=== PATIENT | female | born 1950 | race Caucasian/White ===

== ENCOUNTER → 2019-08-29 | Outpatient (REF) | payer MEDICARE ==
[2019-08-30 11:35] LABS: BASO # 0.1 10^3/uL (0.0-0.2); BASO % 0.5 % (0.0-1.0); EOS # 0.3 10^3/uL (0.0-0.5); EOS % 2.8 % (0.0-3.0); HEMATOCRIT 39.8 % (36.0-47.0); HEMOGLOBIN 12.8 g/dl (12.0-15.5); LYMPH # 2.5 10^3/uL (1.5-5.0); LYMPH % 21.2 % (24.0-44.0); MEAN CORPUSCULAR HEMOGLOBIN 29.6 pg (27.0-33.0); MEAN CORPUSCULAR HGB CONC 32.2 g/dl (32.0-36.5); MEAN CORPUSCULAR VOLUME 91.9 fl (80.0-96.0); NEUTROPHILS % 67.2 % (36.0-66.0); PLATELET COUNT, AUTOMATED 394 10^3/uL (150-450); RED BLOOD COUNT 4.33 10^6/uL (4.00-5.40); WHITE BLOOD COUNT 11.9 10^3/uL (4.0-10.0)
[2019-08-30 12:00] LABS: ALBUMIN 3.8 GM/DL (3.2-5.2); ALT/SGPT 37 U/L (12-78); BILIRUBIN,TOTAL 0.3 MG/DL (0.2-1.0); BLOOD UREA NITROGEN 12 MG/DL (7-18); CALCIUM LEVEL 9.4 MG/DL (8.8-10.2); CARBON DIOXIDE LEVEL 27 MEQ/L (21-32); CHLORIDE LEVEL 106 MEQ/L (98-107); CREATININE FOR GFR 0.66 MG/DL (0.55-1.30); FREE T4 1.13 NG/DL (0.76-1.46); GLOMERULAR FILTRATION RATE > 60.0 (>39); GLUCOSE, FASTING 87 MG/DL (70-100); POTASSIUM SERUM 3.7 MEQ/L (3.5-5.1); SODIUM LEVEL 140 MEQ/L (136-145); TOTAL PROTEIN 7.7 GM/DL (6.4-8.2)
== END ==
LOC: M SFHCCLAY 14:54
PROVIDERS: ATTEND Nurse Practitioner Family
DX: R03.0 Elevated blood-pressure reading, without diagnosis of hypertension (principal); Z79.899 Other long term (current) drug therapy
CPT/HCPCS: 80053; 84439; 84443; 85025; 93005; G0463

== ENCOUNTER 2019-12-20 13:00 | Outpatient (RCR) | payer MEDICARE | END 2019-12-31 | LOC: M ST 13:00 | PROVIDERS: ATTEND Otolaryngology | DX: Z96.3 Presence of artificial larynx (principal); Z90.02 Acquired absence of larynx ==

== ENCOUNTER → 2020-01-25 | Outpatient (REF) | payer MEDICARE | LOC: M SFHCCLAY 11:53 | PROVIDERS: ATTEND Physician Assistant | DX: R30.0 Dysuria (principal) | CPT/HCPCS: 81002; 87088; 87186; G0463 ==

== ENCOUNTER 2020-04-20 09:20 | Outpatient (RCR) | payer MEDICARE | END 2020-04-29 | disposition home or self-care (01) | LOC: M ST 09:20 | PROVIDERS: ATTEND Otolaryngology | DX: Z96.3 Presence of artificial larynx (principal) ==

== ENCOUNTER → 2020-06-15 | Outpatient (CLI) | payer MEDICARE ==
--- NOTE | 2020-06-15 11:26 | REP ---
INDICATION: J44.9, COPD. COMPARISON: Multiple the latest 04/05/2017 a frontal view TECHNIQUE: PA and lateral FINDINGS: The cardiomediastinal silhouette is stable. The heart is not enlarged. Once again, there is bilateral central pulmonary arterial enlargement status quo. Basilar fibrotic changes are noted status quo. There is lung field hyperexpansion which appears stable. No acute patchy parenchymal opacities or pleural effusions have developed. There is no change in the osseous structures. IMPRESSION: Stable chronic changes as described above. There is evidence of pulmonary arterial hypertension. <Electronically signed by Ho Patterson > 06/15/20 1121
== END ==
LOC: M CLY 10:40
PROVIDERS: ATTEND Nurse Practitioner Adult Health
DX: J44.9 Chronic obstructive pulmonary disease, unspecified (principal)

== ENCOUNTER 2020-08-20 12:50 | Outpatient (RCR) | payer MEDICARE | END 2020-08-29 | LOC: M ST 12:50 | PROVIDERS: ATTEND Otolaryngology | DX: Z90.02 Acquired absence of larynx (principal); Z96.3 Presence of artificial larynx ==

== ENCOUNTER → 2020-11-29 | Outpatient (REF) | payer MEDICARE ==
[2020-11-29 15:53] LABS: BASO # 0.1 10^3/uL (0.0-0.2); BASO % 0.4 % (0.0-1.0); EOS # 0.1 10^3/uL (0.0-0.5); HEMATOCRIT 40.6 % (36.0-47.0); HEMOGLOBIN 13.1 g/dl (12.0-15.5); LYMPH % 21.7 % (24.0-44.0); MEAN CORPUSCULAR HEMOGLOBIN 28.9 pg (27.0-33.0); MEAN CORPUSCULAR HGB CONC 32.3 g/dl (32.0-36.5); MEAN CORPUSCULAR VOLUME 89.4 fl (80.0-96.0); MONO # 1.2 10^3/uL (0.0-0.8); MONO % 8.7 % (2.0-8.0); NEUTROPHILS # 9.4 10^3/uL (1.5-8.5); NEUTROPHILS % 67.8 % (36.0-66.0); PLATELET COUNT, AUTOMATED 425 10^3/uL (150-450); RED BLOOD COUNT 4.54 10^6/uL (4.00-5.40); WHITE BLOOD COUNT 13.9 10^3/uL (4.0-10.0)
[2020-11-29 16:24] LABS: ALBUMIN 3.6 GM/DL (3.2-5.2); ALT/SGPT 26 U/L (12-78); BILIRUBIN,TOTAL 0.6 MG/DL (0.2-1.0); BLOOD UREA NITROGEN 12 MG/DL (7-18); CALCIUM LEVEL 9.1 MG/DL (8.8-10.2); CARBON DIOXIDE LEVEL 26 MEQ/L (21-32); CHLORIDE LEVEL 104 MEQ/L (98-107); CREATININE FOR GFR 0.74 MG/DL (0.55-1.30); GLOMERULAR FILTRATION RATE > 60.0 (>39); GLUCOSE, FASTING 68 MG/DL (70-100); POTASSIUM SERUM 3.8 MEQ/L (3.5-5.1); SODIUM LEVEL 137 MEQ/L (136-145); TOTAL PROTEIN 8.2 GM/DL (6.4-8.2)
== END ==
LOC: M SFHCCAPE 14:10
PROVIDERS: ATTEND Physician Assistant
DX: R07.81 Pleurodynia (principal); R05 Cough
CPT/HCPCS: 36415; 80053; 85025; 85379; 87426; 93005; G0463; U0003

== ENCOUNTER → 2020-12-03 | Outpatient (CLI) | payer MEDICARE ==
--- NOTE | 2020-12-03 11:55 | REP ---
INDICATION: PNEUMONIA COMPARISON: 06/15/2020 TECHNIQUE: PA and lateral. FINDINGS: The mediastinum and cardiac silhouette are normal. The lung diane demonstrate chronic appearing changes without acute consolidation, effusion, or pneumothorax. The skeletal structures are intact and normal. IMPRESSION: Chronic appearing changes. No acute consolidation or effusion. <Electronically signed by Eric Mojica > 12/03/20 [id number]
== END ==
LOC: M CLY 11:28
PROVIDERS: ATTEND Nurse Practitioner Family
DX: J18.9 Pneumonia, unspecified organism (principal); J44.9 Chronic obstructive pulmonary disease, unspecified; Z93.0 Tracheostomy status
CPT/HCPCS: 71046; 80053; 85025; G0463

== ENCOUNTER → 2020-12-03 | Outpatient (REF) | payer MEDICARE ==
[2020-12-03 16:04] LABS: BASO % 0.2 % (0.0-1.0); EOS % 0.1 % (0.0-3.0); HEMATOCRIT 40.4 % (36.0-47.0); LYMPH # 2.2 10^3/uL (1.5-5.0); MEAN CORPUSCULAR HGB CONC 32.2 g/dl (32.0-36.5); MONO # 1.2 10^3/uL (0.0-0.8); MONO % 6.7 % (2.0-8.0); NEUTROPHILS # 14.3 10^3/uL (1.5-8.5); NEUTROPHILS % 79.8 % (36.0-66.0); PLATELET COUNT, AUTOMATED 492 10^3/uL (150-450); RED BLOOD COUNT 4.49 10^6/uL (4.00-5.40); WHITE BLOOD COUNT 17.9 10^3/uL (4.0-10.0)
[2020-12-03 16:33] LABS: ALBUMIN 3.3 GM/DL (3.2-5.2); ALT/SGPT 32 U/L (12-78); BILIRUBIN,TOTAL 0.3 MG/DL (0.2-1.0); BLOOD UREA NITROGEN 22 MG/DL (7-18); CALCIUM LEVEL 9.1 MG/DL (8.8-10.2); CARBON DIOXIDE LEVEL 27 MEQ/L (21-32); CHLORIDE LEVEL 108 MEQ/L (98-107); CREATININE FOR GFR 0.79 MG/DL (0.55-1.30); GLOMERULAR FILTRATION RATE > 60.0 (>39); GLUCOSE, FASTING 92 MG/DL (70-100); POTASSIUM SERUM 3.6 MEQ/L (3.5-5.1); SODIUM LEVEL 142 MEQ/L (136-145); TOTAL PROTEIN 7.5 GM/DL (6.4-8.2)
== END ==
LOC: M SFHCCLAY 11:08
PROVIDERS: ATTEND Nurse Practitioner Family
DX: J18.9 Pneumonia, unspecified organism (principal); J44.9 Chronic obstructive pulmonary disease, unspecified; Z93.0 Tracheostomy status

== ENCOUNTER → 2020-12-06 | Outpatient (REF) | payer MEDICARE ==
[2020-12-06 16:28] LABS: BASO # 0.1 10^3/uL (0.0-0.2); BASO % 0.4 % (0.0-1.0); EOS # 0.4 10^3/uL (0.0-0.5); EOS % 3.3 % (0.0-3.0); HEMATOCRIT 40.8 % (36.0-47.0); HEMOGLOBIN 13.2 g/dl (12.0-15.5); LYMPH # 3.5 10^3/uL (1.5-5.0); LYMPH % 26.4 % (24.0-44.0); MEAN CORPUSCULAR HEMOGLOBIN 28.8 pg (27.0-33.0); MEAN CORPUSCULAR HGB CONC 32.4 g/dl (32.0-36.5); MEAN CORPUSCULAR VOLUME 89.1 fl (80.0-96.0); MONO # 0.8 10^3/uL (0.0-0.8); MONO % 6.2 % (2.0-8.0); NEUTROPHILS # 8.1 10^3/uL (1.5-8.5); PLATELET COUNT, AUTOMATED 476 10^3/uL (150-450); RED BLOOD COUNT 4.58 10^6/uL (4.00-5.40); WHITE BLOOD COUNT 13.1 10^3/uL (4.0-10.0)
[2020-12-06 17:57] LABS: ALBUMIN 3.1 GM/DL (3.2-5.2); ALT/SGPT 41 U/L (12-78); BILIRUBIN,TOTAL 0.4 MG/DL (0.2-1.0); BLOOD UREA NITROGEN 16 MG/DL (7-18); CALCIUM LEVEL 8.9 MG/DL (8.8-10.2); CARBON DIOXIDE LEVEL 27 MEQ/L (21-32); CHLORIDE LEVEL 105 MEQ/L (98-107); CREATININE FOR GFR 0.77 MG/DL (0.55-1.30); GLOMERULAR FILTRATION RATE > 60.0 (>39); GLUCOSE, FASTING 99 MG/DL (70-100); POTASSIUM SERUM 3.6 MEQ/L (3.5-5.1); SODIUM LEVEL 140 MEQ/L (136-145); TOTAL PROTEIN 6.6 GM/DL (6.4-8.2)
== END ==
LOC: M SFHCCAPE 09:39
PROVIDERS: ATTEND Nurse Practitioner Family
DX: R07.81 Pleurodynia (principal); J18.9 Pneumonia, unspecified organism

== ENCOUNTER 2020-12-24 11:00 | Outpatient (RCR) | payer MEDICARE | END 2020-12-30 | LOC: M ST 11:00 | PROVIDERS: ATTEND Otolaryngology | DX: Z96.3 Presence of artificial larynx (principal) ==

== ENCOUNTER → 2021-01-30 | Outpatient (CLI) | payer MEDICARE ==
--- NOTE | 2021-01-30 10:07 | REP ---
INDICATION: R91.8 ABNORMAL FINDING OF LUNG FIELD. COMPARISON: Multiple the latest 12/03/2020 TECHNIQUE: PA and lateral FINDINGS: Since the last examination minimal right CP angle blunting has developed. Lung diane are otherwise stable. The cardiomediastinal silhouette is stable. The heart is not enlarged. There is no change the osseous structures. IMPRESSION: New right CP angle blunting etiology uncertain. Follow-up is recommended. <Electronically signed by Ho Patterson > 01/30/21 1001
--- NOTE | 2021-01-30 11:19 | REP ---
INDICATION: M25.512 ACUTE PAIN OF LEFT SHOULDER. COMPARISON: None. TECHNIQUE: Three views of the left shoulder were performed. FINDINGS: The acromioclavicular and glenohumeral relationships are within normal limits. There is no acute fracture or destructive osseous lesion. IMPRESSION: Within normal limits <Electronically signed by Ho Patterson > 01/30/21 1115
== END ==
LOC: M CLY 09:22
PROVIDERS: ATTEND Nurse Practitioner Adult Health
DX: R91.8 Other nonspecific abnormal finding of lung field (principal); M25.512 Pain in left shoulder
CPT/HCPCS: 71046; 73030; G0463

== ENCOUNTER → 2021-03-07 | Outpatient (CLI) | payer MEDICARE | LOC: M PLAIMG 09:03 | PROVIDERS: ATTEND Orthopaedic Surgery | DX: M19.012 Primary osteoarthritis, left shoulder (principal); M67.814 Other specified disorders of tendon, left shoulder ==

== ENCOUNTER 2021-05-15 09:09 | Outpatient (RCR) | payer MEDICARE | END 2021-05-30 | LOC: M ST 09:09 | PROVIDERS: ATTEND Otolaryngology | DX: Z96.3 Presence of artificial larynx (principal) ==

== ENCOUNTER 2021-07-23 09:00 | Outpatient (RCR) | payer MEDICARE | END 2021-07-30 | LOC: M ST 09:00 | PROVIDERS: ATTEND Otolaryngology | DX: Z96.3 Presence of artificial larynx (principal) ==

== ENCOUNTER → 2021-10-22 | Outpatient (CLI) | payer MEDICARE | LOC: M SOG 08:06 | PROVIDERS: ATTEND Physician Assistant | DX: G56.03 Carpal tunnel syndrome, bilateral upper limbs (principal) ==

== ENCOUNTER → 2021-10-28 | Outpatient (CLI) | payer MEDICARE ==
[~2021-10-28] MED LIST: ALBU2.5V10 INH; ATOR40TA75 PO; ECOT81TA5 PO; LEXA1TAB2 PO; LISI5TAB11 PO; TREL1AER IN; VENTAER INH
== END ==
LOC: M LABSMTC 11:10
PROVIDERS: ATTEND Anesthesiology
DX: Z01.818 Encounter for other preprocedural examination (principal); Z11.52 Encounter for screening for COVID-19

== ENCOUNTER 2021-10-30 08:58 | Day surgery (SDC) | payer MEDICARE ==
[~2021-10-30] VITALS: Ht 160 cm; Wt 73.5 kg
[~2021-10-30 08:58] MED LIST changes: +LIDOCAINE W/EPINEPHRINE 1% 20ML VIAL XX ONE; +SODIUM BICARBONATE 8.4% INJ 50MEQ 50 ML VIAL XX ONE
[2021-10-30] MEDS ORDERED: BACITRACIN OINTMENT 30GM TUBE As Ordered ONE (12:37)
[2021-10-30 13:01] VITALS: BP 136/64
== END 2021-10-30 13:30 | disposition home or self-care (01) ==
LOC: M SDC 08:58
PROVIDERS: ATTEND Orthopaedic Surgery Hand Surgery
DX: G56.02 Carpal tunnel syndrome, left upper limb (principal); E78.00 Pure hypercholesterolemia, unspecified; J44.9 Chronic obstructive pulmonary disease, unspecified; Z99.81 Dependence on supplemental oxygen; Z85.21 Personal history of malignant neoplasm of larynx; F41.9 Anxiety disorder, unspecified; F32.A Depression, unspecified; Z87.891 Personal history of nicotine dependence; Z79.899 Other long term (current) drug therapy; Z79.82 Long term (current) use of aspirin; Z79.51 Long term (current) use of inhaled steroids

== ENCOUNTER 2021-11-25 10:00 | Outpatient (RCR) | payer MEDICARE ==
[~2021-11-25 10:00] MED LIST changes: -LIDOCAINE W/EPINEPHRINE 1% 20ML VIAL XX ONE; -SODIUM BICARBONATE 8.4% INJ 50MEQ 50 ML VIAL XX ONE
== END 2021-11-29 ==
LOC: M ST 10:00
PROVIDERS: ATTEND Otolaryngology
DX: Z90.02 Acquired absence of larynx (principal); Z96.3 Presence of artificial larynx

== ENCOUNTER → 2022-01-22 | Outpatient (REF) | payer MEDICARE ==
[2022-01-22 17:09] LABS: BASO % 0.5 % (0.0-1.0); EOS # 0.2 10^3/uL (0.0-0.5); EOS % 1.8 % (0.0-3.0); HEMATOCRIT 41.3 % (36.0-47.0); HEMOGLOBIN 13.4 g/dl (12.0-15.5); LYMPH # 2.3 10^3/uL (1.5-5.0); LYMPH % 27.2 % (24.0-44.0); MEAN CORPUSCULAR HEMOGLOBIN 29.6 pg (27.0-33.0); MEAN CORPUSCULAR HGB CONC 32.4 g/dl (32.0-36.5); MEAN CORPUSCULAR VOLUME 91.2 fl (80.0-96.0); MONO # 0.5 10^3/uL (0.0-0.8); MONO % 6.3 % (2.0-8.0); NEUTROPHILS # 5.5 10^3/uL (1.5-8.5); PLATELET COUNT, AUTOMATED 406 10^3/uL (150-450); RED BLOOD COUNT 4.53 10^6/uL (4.00-5.40); WHITE BLOOD COUNT 8.5 10^3/uL (4.0-10.0)
[2022-01-22 18:04] LABS: ALBUMIN 4.1 G/DL (3.2-5.2); ALT/SGPT 33 U/L (7.0-40); BILIRUBIN,TOTAL 0.7 MG/DL (0.3-1.2); BLOOD UREA NITROGEN 10 MG/DL (9-23); CALCIUM LEVEL 9.3 MG/DL (8.3-10.6); CARBON DIOXIDE LEVEL 24 MMOL/L (20-31); CHLORIDE LEVEL 105 MMOL/L (98-107); CHOLESTEROL LEVEL 162 MG/DL (<200); CHOLESTEROL RISK RATIO 2.62 (<5); CREATININE FOR GFR 0.69 MG/DL (0.55-1.30); FREE T4 1.04 NG/DL (0.89-1.76); GLOMERULAR FILTRATION RATE > 60.0 (>39); GLUCOSE, FASTING 101 MG/DL (74-106); HDL CHOLESTEROL 61.6 MG/DL (>40); LDL CHOLESTEROL 79.2 MG/DL (<100); NON-HDL-C 100 MG/DL; POTASSIUM SERUM 3.9 MMOL/L (3.5-5.1); SODIUM LEVEL 141 MMOL/L (136-145); THYROID STIMULATING HORMONE 1.229 uIU/ML (0.55-4.78); TOTAL PROTEIN 7.5 G/DL (5.7-8.2); TRIGLYCERIDES LEVEL 106 MG/DL (<150)
[2022-01-22 19:08] LABS: HEMOGLOBIN A1c 5.8 % (4.0-6.0)
== END ==
LOC: M SFHCCLAY 11:23
PROVIDERS: ATTEND Nurse Practitioner Family
DX: E78.2 Mixed hyperlipidemia (principal); F41.8 Other specified anxiety disorders; J44.9 Chronic obstructive pulmonary disease, unspecified; R03.0 Elevated blood-pressure reading, without diagnosis of hypertension; Z93.0 Tracheostomy status; Z13.1 Encounter for screening for diabetes mellitus; Z79.899 Other long term (current) drug therapy

== ENCOUNTER → 2022-02-14 | Outpatient (CLI) | payer MEDICARE | LOC: M PLAIMG 08:14 | PROVIDERS: ATTEND Nurse Practitioner Family | DX: R41.3 Other amnesia (principal) ==

== ENCOUNTER 2022-02-21 09:30 | Outpatient (RCR) | payer MEDICARE | END 2022-03-01 | LOC: M ST 09:30 | PROVIDERS: ATTEND Otolaryngology | DX: Z90.02 Acquired absence of larynx (principal); Z96.3 Presence of artificial larynx ==

== ENCOUNTER → 2022-04-28 | Outpatient (REF) | payer MEDICARE ==
[2022-04-28 18:14] LABS: FOLATE 4.1 NG/ML (>5.4)
== END ==
LOC: M LABDRAWC 17:03
PROVIDERS: ATTEND Psychiatry & Neurology Neurology
DX: R41.3 Other amnesia (principal); E51.9 Thiamine deficiency, unspecified; E53.8 Deficiency of other specified B group vitamins; E53.1 Pyridoxine deficiency

== ENCOUNTER → 2022-05-15 | Outpatient (CLI) | payer MEDICARE | LOC: M PLAIMG 11:12 | PROVIDERS: ATTEND Nurse Practitioner Adult Health | DX: R91.8 Other nonspecific abnormal finding of lung field (principal); J44.9 Chronic obstructive pulmonary disease, unspecified; R09.02 Hypoxemia ==

== ENCOUNTER → 2022-05-26 | Outpatient (CLI) | payer MEDICARE | LOC: M PLAIMG 12:50 | PROVIDERS: ATTEND Nurse Practitioner Adult Health | DX: R91.8 Other nonspecific abnormal finding of lung field (principal) ==

== ENCOUNTER 2022-06-25 14:01 | Outpatient (RCR) | payer MEDICARE | END 2022-06-29 | LOC: M ST 14:01 | PROVIDERS: ATTEND Otolaryngology | DX: Z96.3 Presence of artificial larynx (principal) ==

== ENCOUNTER → 2022-07-02 | Outpatient (REF) | payer MEDICARE ==
[2022-07-02 18:26] LABS: HEMOGLOBIN A1c 6.1 % (4.0-6.0)
[2022-07-02 18:40] LABS: FREE T4 0.99 NG/DL (0.89-1.76)
[2022-07-02 18:42] LABS: ALBUMIN 3.7 G/DL (3.2-5.2); ALKALINE PHOSPHATASE 91 U/L (46-116); ALT/SGPT < 9 U/L (7.0-40); AST/SGOT 35 U/L (<34); BILIRUBIN,TOTAL 0.5 MG/DL (0.3-1.2); BLOOD UREA NITROGEN 11 MG/DL (9-23); CALCIUM LEVEL 9.4 MG/DL (8.3-10.6); CARBON DIOXIDE LEVEL 26 MMOL/L (20-31); CHLORIDE LEVEL 107 MMOL/L (98-107); CREATININE FOR GFR 0.64 MG/DL (0.55-1.30); GLOMERULAR FILTRATION RATE > 60.0 (>39); GLUCOSE, FASTING 79 MG/DL (74-106); POTASSIUM SERUM 4.7 MMOL/L (3.5-5.1); SODIUM LEVEL 141 MMOL/L (136-145); TOTAL PROTEIN 7.4 G/DL (5.7-8.2)
[2022-07-02 18:44] LABS: THYROID STIMULATING HORMONE 2.178 uIU/ML (0.55-4.78)
== END ==
LOC: M SFHCCLAY 11:37
PROVIDERS: ATTEND Nurse Practitioner Family
DX: F41.8 Other specified anxiety disorders (principal); E78.2 Mixed hyperlipidemia; J44.9 Chronic obstructive pulmonary disease, unspecified; Z93.0 Tracheostomy status; Z13.1 Encounter for screening for diabetes mellitus; Z79.899 Other long term (current) drug therapy

== ENCOUNTER → 2022-10-06 | Outpatient (CLI) | payer MEDICARE | LOC: M PLAIMG 11:20 | PROVIDERS: ATTEND Nurse Practitioner Adult Health | DX: R91.8 Other nonspecific abnormal finding of lung field (principal) ==

== ENCOUNTER 2022-10-27 01:00 | Outpatient (RCR) | payer MEDICARE | END 2022-10-30 | LOC: M ST 01:00 | PROVIDERS: ATTEND Otolaryngology | DX: Z96.3 Presence of artificial larynx (principal) ==

== ENCOUNTER → 2023-01-14 | Outpatient (REF) | payer MEDICARE ==
[2023-01-14 18:48] LABS: BASO % 0.4 % (0.0-1.0); EOS # 0.2 10^3/uL (0.0-0.5); HEMATOCRIT 42.1 % (36.0-47.0); HEMOGLOBIN 13.5 g/dl (12.0-15.5); LYMPH # 2.4 10^3/uL (1.5-5.0); LYMPH % 30.3 % (24.0-44.0); MEAN CORPUSCULAR HEMOGLOBIN 29.9 pg (27.0-33.0); MEAN CORPUSCULAR HGB CONC 32.1 g/dl (32.0-36.5); MEAN CORPUSCULAR VOLUME 93.3 fl (80.0-96.0); MONO # 0.6 10^3/uL (0.0-0.8); MONO % 7.9 % (2.0-8.0); NEUTROPHILS # 4.7 10^3/uL (1.5-8.5); NEUTROPHILS % 58.1 % (36.0-66.0); PLATELET COUNT, AUTOMATED 404 10^3/uL (150-450); RED BLOOD COUNT 4.51 10^6/uL (4.00-5.40)
[2023-01-14 19:03] LABS: ALBUMIN 3.6 G/DL (3.2-5.2); ALKALINE PHOSPHATASE 94 U/L (46-116); ALT/SGPT 29 U/L (7.0-40); AST/SGOT 37 U/L (<34); BILIRUBIN,TOTAL 0.5 MG/DL (0.3-1.2); BLOOD UREA NITROGEN 11 MG/DL (9-23); CALCIUM LEVEL 9.5 MG/DL (8.3-10.6); CARBON DIOXIDE LEVEL 30 MMOL/L (20-31); CHLORIDE LEVEL 107 MMOL/L (98-107); CREATININE FOR GFR 0.77 MG/DL (0.55-1.30); GLOMERULAR FILTRATION RATE > 60.0 (>39); GLUCOSE, FASTING 83 MG/DL (74-106); POTASSIUM SERUM 4.4 MMOL/L (3.5-5.1); SODIUM LEVEL 143 MMOL/L (136-145); TOTAL PROTEIN 7.7 G/DL (5.7-8.2)
[2023-01-14 19:04] LABS: FOLATE > 24.0 NG/ML (>5.4); VITAMIN B12 LEVEL 1349 PG/ML (211-911)
== END ==
LOC: M LABDRAWC 17:16
PROVIDERS: ATTEND Psychiatry & Neurology Neurology
DX: R41.3 Other amnesia (principal); E53.8 Deficiency of other specified B group vitamins

== ENCOUNTER 2023-02-20 10:00 | Outpatient (RCR) | payer MEDICARE | END 2023-03-01 | LOC: M ST 10:00 | PROVIDERS: ATTEND Otolaryngology | DX: Z90.02 Acquired absence of larynx (principal); Z96.3 Presence of artificial larynx ==

== ENCOUNTER → 2023-05-11 | Outpatient (CLI) | payer MEDICARE | LOC: M PLAIMG 10:32 | PROVIDERS: ATTEND Internal Medicine Pulmonary Disease | DX: J44.9 Chronic obstructive pulmonary disease, unspecified (principal); R91.1 Solitary pulmonary nodule ==

== ENCOUNTER → 2023-05-13 | Outpatient (REF) | payer MEDICARE | LOC: M LAB REF 16:51 | PROVIDERS: ATTEND Nurse Practitioner Adult Health | DX: J44.9 Chronic obstructive pulmonary disease, unspecified (principal) ==

== ENCOUNTER 2023-06-23 10:31 | Outpatient (RCR) | payer MEDICARE | END 2023-06-30 | LOC: M ST 10:31 | PROVIDERS: ATTEND Otolaryngology | DX: Z90.02 Acquired absence of larynx (principal); Z96.3 Presence of artificial larynx ==

== ENCOUNTER 2023-09-06 10:52 | Emergency (ER) | payer MEDICARE ==
[~2023-09-06] VITALS: Ht 160 cm; Wt 72.3 kg
[2023-09-06] MEDS ORDERED: DONE5TAB86 PO (11:09)
[2023-09-06 12:48] VITALS: BP 140/74; TEMP 98.2; O2SAT 86
[2023-09-06] MEDS: LIDOCAINE 1% MDV 20ML VIAL SC ONE (12:57)
== END 2023-09-06 13:44 | disposition home or self-care (01) ==
LOC: M ED 10:52
DX: S01.01XA Laceration without foreign body of scalp, initial encounter (principal); W01.118A Fall on same level from slipping, tripping and stumbling with subsequent striking against other sharp object, initial encounter; Y92.009 Unspecified place in unspecified non-institutional (private) residence as the place of occurrence of the external cause; Y93.89 Activity, other specified; Y99.9 Unspecified external cause status; E78.5 Hyperlipidemia, unspecified; I10 Essential (primary) hypertension; J44.9 Chronic obstructive pulmonary disease, unspecified; F17.200 Nicotine dependence, unspecified, uncomplicated; Z79.82 Long term (current) use of aspirin; Z79.899 Other long term (current) drug therapy

== ENCOUNTER 2023-09-22 10:00 | Outpatient (RCR) | payer MEDICARE ==
[~2023-09-22 10:00] MED LIST changes: +DONE5TAB86 PO
== END 2023-09-30 ==
LOC: M ST 10:00
PROVIDERS: ATTEND Otolaryngology
DX: Z96.3 Presence of artificial larynx (principal)

== ENCOUNTER 2023-10-19 11:54 | Emergency (ER) | payer MEDICARE ==
[~2023-10-19] VITALS: Ht 160 cm; Wt 72.8 kg
[2023-10-19 12:48] LABS: BASO % 0.4 % (0.0-1.0); EOS # 0.2 10^3/uL (0.0-0.5); EOS % 2.2 % (0.0-3.0); HEMATOCRIT 42.2 % (36.0-47.0); HEMOGLOBIN 13.6 g/dl (12.0-15.5); LYMPH # 1.8 10^3/uL (1.5-5.0); LYMPH % 24.1 % (24.0-44.0); MEAN CORPUSCULAR HGB CONC 32.2 g/dl (32.0-36.5); MONO # 0.5 10^3/uL (0.0-0.8); MONO % 7.2 % (2.0-8.0); NEUTROPHILS # 4.8 10^3/uL (1.5-8.5); NEUTROPHILS % 65.5 % (36.0-66.0); PLATELET COUNT, AUTOMATED 357 10^3/uL (150-450); RED BLOOD COUNT 4.54 10^6/uL (4.00-5.40); WHITE BLOOD COUNT 7.3 10^3/uL (4.0-10.0)
[2023-10-19 13:06] LABS: INR 0.95; PARTIAL THROMBOPLASTIN TIME 24.6 SECONDS (24.8-34.2); PROTHROMBIN TIME 12.4 SECONDS (12.5-14.5)
[2023-10-19 13:24] LABS: ALBUMIN 3.6 G/DL (3.2-5.2); ALKALINE PHOSPHATASE 82 U/L (46-116); ALT/SGPT 17 U/L (7.0-40); AST/SGOT 15 U/L (<34); BILIRUBIN,DIRECT < 0.1 MG/DL (<0.4); BILIRUBIN,TOTAL 0.3 MG/DL (0.3-1.2); BLOOD UREA NITROGEN 9 MG/DL (9-23); CALCIUM LEVEL 9.4 MG/DL (8.3-10.6); CARBON DIOXIDE LEVEL 31 MMOL/L (20-31); CHLORIDE LEVEL 107 MMOL/L (98-107); CK-MB VALUE MASS 1.2 NG/ML (<3.6); CPK CREATINE PHOSPHOKINASE 88 U/L (34-145); CREATININE FOR GFR 0.76 MG/DL (0.55-1.30); GLOMERULAR FILTRATION RATE > 60.0 (>39); GLUCOSE, FASTING 75 MG/DL (74-106); MB/CK RELATIVE INDEX 1.36 (< OR =4); POTASSIUM SERUM 3.9 MMOL/L (3.5-5.1); SODIUM LEVEL 140 MMOL/L (136-145); TOTAL PROTEIN 7.6 G/DL (5.7-8.2)
[2023-10-19 13:25] LABS: THYROID STIMULATING HORMONE 1.394 uIU/ML (0.55-4.78)
[2023-10-19 13:26] LABS: FREE T4 1.09 NG/DL (0.89-1.76)
[2023-10-19] MEDS ORDERED: ISOVUE-370 76% 100ML VIAL As Ordered ONE (13:32)
[2023-10-19 14:25] LABS: CK-MB VALUE MASS < 1.0 NG/ML (<3.6)
[2023-10-19 14:27] LABS: CPK CREATINE PHOSPHOKINASE 79 U/L (34-145); MB/CK RELATIVE INDEX 1.26 (< OR =4)
[2023-10-19] MEDS: NS 1,000 ML IV SCH (15:27)
[2023-10-19] MEDS: MECLIZINE 25 MG TABLET PO ONE (15:28)
[2023-10-19] MEDS ORDERED: MECL-209 PO (18:06)
[2023-10-19 18:54] VITALS: BP 152/74; TEMP 98.1; O2SAT 95
== END 2023-10-19 19:15 | disposition home or self-care (01) ==
LOC: M ED 11:54
DX: R42 Dizziness and giddiness (principal); F41.9 Anxiety disorder, unspecified; F32.A Depression, unspecified; J44.9 Chronic obstructive pulmonary disease, unspecified; Z85.21 Personal history of malignant neoplasm of larynx; Z87.891 Personal history of nicotine dependence; Z79.82 Long term (current) use of aspirin; Z79.899 Other long term (current) drug therapy
CPT/HCPCS: 70450; 70496; 70498; 70544; 70551; 71045; 80048; 80076; 82550; 82553; 84439; 84443; 84484; 85025; 85610; 85730; 93005; 93041; 94760; 99285; Q9967

== ENCOUNTER 2023-10-24 10:16 | Emergency (ER) | payer MEDICARE ==
[~2023-10-24 10:16] MED LIST changes: +MECL-209 PO
[2023-10-24 10:40] VITALS: O2SAT 96
[2023-10-24] MEDS: IPRATROPIUM 0.5MG/ALBUTEROL 2.5MG INH SOL UD 3ML (DUONEB) NEB ONE ×2 (10:48→11:06)
[2023-10-24 10:53] LABS: ABG BASE EXCESS 0.9 (-2.0-2.0); ABG HCO3 25.1 MMOL/L (22.0-26.0); ABG PARTIAL PRESSURE CO2 38.5 mmHg (35.0-45.0); ABG PARTIAL PRESSURE O2 81.3 mmHg (75.0-100.0); ABG STANDARD HCO3 25.3 MMOL/L. (22.0-26.0); ABG TOTAL CO2 26.3 MMOL/L (23.0-31.0); ABG pH (ARTERIAL) 7.432 UNITS (7.350-7.450)
[2023-10-24] MEDS: IPRATROPIUM 0.5MG/ALBUTEROL 2.5MG INH SOL UD 3ML (DUONEB) NEB STA (10:55)
[2023-10-24] MEDS: methylPREDNISolone 125MG 2ML VIAL IV ONE (11:37)
[2023-10-24 12:07] LABS: BASO % 0.3 % (0.0-1.0); EOS % 0.3 % (0.0-3.0); HEMATOCRIT 43.7 % (36.0-47.0); HEMOGLOBIN 14.2 g/dl (12.0-15.5); LYMPH # 1.2 10^3/uL (1.5-5.0); LYMPH % 16.1 % (24.0-44.0); MEAN CORPUSCULAR HGB CONC 32.5 g/dl (32.0-36.5); MEAN CORPUSCULAR VOLUME 92.4 fl (80.0-96.0); MONO # 0.8 10^3/uL (0.0-0.8); MONO % 11.1 % (2.0-8.0); NEUTROPHILS # 5.2 10^3/uL (1.5-8.5); NEUTROPHILS % 71.9 % (36.0-66.0); PLATELET COUNT, AUTOMATED 300 10^3/uL (150-450); RED BLOOD COUNT 4.73 10^6/uL (4.00-5.40); WHITE BLOOD COUNT 7.2 10^3/uL (4.0-10.0)
[2023-10-24] MEDS: NS 1,000 ML IV ONE (12:10)
[2023-10-24 12:19] LABS: INR 1.07; PROTHROMBIN TIME 13.6 SECONDS (12.5-14.5)
[2023-10-24] MEDS: cefTRIAXone SOD 1 GM in D5W MINI-BAG PLUS 50 ML IV ONE (12:28)
[2023-10-24 12:41] LABS: CK-MB VALUE MASS < 1.0 NG/ML (<3.6)
[2023-10-24 12:43] LABS: ALBUMIN 4.1 G/DL (3.2-5.2); ALKALINE PHOSPHATASE 86 U/L (46-116); ALT/SGPT 17 U/L (7.0-40); AST/SGOT 24 U/L (<34); BILIRUBIN,DIRECT 0.1 MG/DL (<0.4); BILIRUBIN,TOTAL 0.4 MG/DL (0.3-1.2); BLOOD UREA NITROGEN 10 MG/DL (9-23); CARBON DIOXIDE LEVEL 28 MMOL/L (20-31); CHLORIDE LEVEL 104 MMOL/L (98-107); CREATININE FOR GFR 0.77 MG/DL (0.55-1.30); GLOMERULAR FILTRATION RATE > 60.0 (>39); GLUCOSE, FASTING 133 MG/DL (74-106); POTASSIUM SERUM 3.5 MMOL/L (3.5-5.1); SODIUM LEVEL 138 MMOL/L (136-145); TOTAL PROTEIN 8.6 G/DL (5.7-8.2)
[2023-10-24 12:44] LABS: THYROID STIMULATING HORMONE 1.935 uIU/ML (0.55-4.78)
[2023-10-24 12:45] LABS: THYROXINE (T4) 8.4 UG/DL (4.5-10.9)
[2023-10-24 12:50] LABS: CPK CREATINE PHOSPHOKINASE 113 U/L (34-145); MB/CK RELATIVE INDEX 0.88 (< OR =4)
[2023-10-24] MEDS: AZITHROMYCIN INJ 500 MG, VIAL MATE ADAPTER 1 EACH in NS 250 ML IV ONE (13:30)
[2023-10-24] MEDS ORDERED: PRED20TA PO (13:32)
[2023-10-24] MEDS ORDERED: NIRM1TAB14 PO (13:32)
[2023-10-24] MEDS ORDERED: DOXY-323 PO (13:32)
[2023-10-24 14:31] VITALS: BP 142/70; TEMP 98.1; O2SAT 97
== END 2023-10-24 14:31 | disposition home or self-care (01) ==
LOC: M ED 10:16
DX: U07.1 COVID-19 (principal); J18.9 Pneumonia, unspecified organism; J44.1 Chronic obstructive pulmonary disease with (acute) exacerbation; F17.200 Nicotine dependence, unspecified, uncomplicated; Z79.82 Long term (current) use of aspirin; Z79.899 Other long term (current) drug therapy
CPT/HCPCS: 36600; 71045; 80048; 80076; 82550; 82553; 82803; 83605; 83880; 84436; 84443; 84484; 85025; 85610; 87040; 87070; 87077; 87185; 87186; 87205; 87486; 87581; 87633; 87798; 93005; 93041; 94640; 94760; 96365; 96366; 96368; 96375; 99285; J0456; J0696; J2919

== ENCOUNTER → 2023-11-26 | Outpatient (CLI) | payer MEDICARE ==
[~2023-11-26] MED LIST changes: +DOXY-323 PO; +NIRM1TAB14 PO; +PRED20TA PO
== END ==
LOC: M PLAIMG 10:57
PROVIDERS: ATTEND Nurse Practitioner Adult Health
DX: R91.8 Other nonspecific abnormal finding of lung field (principal)

== ENCOUNTER 2023-12-25 11:05 | Outpatient (RCR) | payer MEDICARE ==
[~2023-12-25 11:05] MED LIST changes: -DOXY-323 PO; +DOXY-441 PO
== END 2023-12-31 ==
LOC: M ST 11:05
PROVIDERS: ATTEND Otolaryngology
DX: Z96.3 Presence of artificial larynx (principal)

== ENCOUNTER 2024-03-03 08:00 | Inpatient (IN) | payer MEDICARE ==
[2024-03-03] MEDS: ACETAMINOPHEN 325 MG TAB PO ONE (08:35)
[2024-03-03] MEDS: methylPREDNISolone 125MG 2ML VIAL IV ONE (08:35)
[2024-03-03] MEDS: NS (Normal Saline) 0.9% 1,000 ML IV ONE (08:36)
[2024-03-03 08:41] LABS: BASO % 0.2 % (0.0-1.0); EOS % 0.1 % (0.0-3.0); HEMATOCRIT 39.5 % (36.0-47.0); HEMOGLOBIN 12.9 g/dl (12.0-15.5); LYMPH # 0.5 10^3/uL (1.5-5.0); LYMPH % 2.5 % (24.0-44.0); MEAN CORPUSCULAR HEMOGLOBIN 29.7 pg (27.0-33.0); MEAN CORPUSCULAR HGB CONC 32.7 g/dl (32.0-36.5); MEAN CORPUSCULAR VOLUME 90.8 fl (80.0-96.0); MONO # 1.3 10^3/uL (0.0-0.8); MONO % 7.3 % (2.0-8.0); NEUTROPHILS # 15.8 10^3/uL (1.5-8.5); NEUTROPHILS % 89.3 % (36.0-66.0); PLATELET COUNT, AUTOMATED 301 10^3/uL (150-450); RED BLOOD COUNT 4.35 10^6/uL (4.00-5.40); WHITE BLOOD COUNT 17.7 10^3/uL (4.0-10.0)
[2024-03-03 08:52] LABS: ABG BASE EXCESS -0.5 (-2.0-2.0); ABG HCO3 23.2 MMOL/L (22.0-26.0); ABG O2 SATURATION 95.7 % (95.0-99.0); ABG PARTIAL PRESSURE CO2 35.2 mmHg (35.0-45.0); ABG PARTIAL PRESSURE O2 80.2 mmHg (75.0-100.0); ABG STANDARD HCO3 24.1 MMOL/L. (22.0-26.0); ABG TOTAL CO2 24.3 MMOL/L (23.0-31.0); ABG pH (ARTERIAL) 7.437 UNITS (7.350-7.450)
[2024-03-03] MEDS: ALBUTEROL SULFATE 2.5MG/0.5ML INH NEB SOLN INH ONE (08:53)
[2024-03-03] MEDS: IPRATROPIUM 0.5MG/ALBUTEROL 2.5MG INH SOL UD 3ML (DUONEB) NEB ONE (08:54)
[2024-03-03 09:27] LABS: ALBUMIN 3.6 G/DL (3.2-5.2); ALKALINE PHOSPHATASE 76 U/L (35-104); ALT/SGPT 20 U/L (7.0-40); AST/SGOT 23 U/L (<34); BILIRUBIN,DIRECT 0.1 MG/DL (<0.4); BILIRUBIN,TOTAL 0.4 MG/DL (0.3-1.2); BLOOD UREA NITROGEN 11 MG/DL (9-23); CALCIUM LEVEL 9.9 MG/DL (8.3-10.6); CARBON DIOXIDE LEVEL 26 MMOL/L (20-31); CHLORIDE LEVEL 101 MMOL/L (98-107); CK-MB VALUE MASS < 1.0 NG/ML (<3.6); CREATININE FOR GFR 0.72 MG/DL (0.55-1.30); GLOMERULAR FILTRATION RATE > 60.0 (>39); GLUCOSE, FASTING 124 MG/DL (74-106); POTASSIUM SERUM 4.2 MMOL/L (3.5-5.1); SODIUM LEVEL 139 MMOL/L (136-145); THYROID STIMULATING HORMONE 0.426 uIU/ML (0.55-4.78); THYROXINE (T4) 7.9 UG/DL (4.5-10.9); TOTAL PROTEIN 7.7 G/DL (5.7-8.2)
[2024-03-03 09:29] LABS: PROCALCITONIN 0.15 ng/ml
[2024-03-03 09:32] LABS: CPK CREATINE PHOSPHOKINASE 64 U/L (34-145); MB/CK RELATIVE INDEX 1.56 (< OR =4)
[2024-03-03] MEDS ORDERED: ISOVUE-370 76% 100ML VIAL As Ordered ONE (09:56)
[2024-03-03] MEDS ORDERED: FLUT1BLS8 IH (10:13)
[2024-03-03] MEDS ORDERED: MECL-86 PO (10:13)
[2024-03-03] MEDS ORDERED: DONE5TAB82 PO (10:13)
[2024-03-03] MEDS ORDERED: HOME MED LIST COMPLETE! XX SCH (10:15)
[2024-03-03 10:59] LABS: CK-MB VALUE MASS < 1.0 NG/ML (<3.6)
[2024-03-03 11:00] LABS: CPK CREATINE PHOSPHOKINASE 74 U/L (34-145); MB/CK RELATIVE INDEX 1.35 (< OR =4)
[2024-03-03] MEDS: cefTRIAXone SOD 2 GM in DEXTROSE 5% (D5W) ADV/MINI-BAG 50 ML IV ONE (11:29)
[2024-03-03 12:11] LABS: CK-MB VALUE MASS < 1.0 NG/ML (<3.6)
[2024-03-03 12:19] LABS: CPK CREATINE PHOSPHOKINASE 97 U/L (34-145); MB/CK RELATIVE INDEX 1.03 (< OR =4)
[2024-03-03] MEDS: DOXYCYCLINE HYCLATE 100 MG in DEXTROSE 5% (D5W) MINI-BAG PLU 100 ML IV ONE (12:23)
[2024-03-03] MEDS: IPRATROPIUM 0.5MG/ALBUTEROL 2.5MG INH SOL UD 3ML (DUONEB) NEB SCH (15:55)
[2024-03-03] MEDS: NS (Normal Saline) 0.9% 1,000 ML IV SCH (15:59)
[2024-03-03] MEDS: dexAMETHasone 20MG/5ML VIAL IV SCH (18:06)
[2024-03-03] MEDS: FORMOTEROL FUMARATE 20 MCG/2 ML INHALATION SOLUTION (PERFOROMIST) INH SCH (20:00)
[2024-03-03 20:18] VITALS: BP 147/94; TEMP 100.8; O2SAT 90
[2024-03-03] MEDS: BUDESONIDE 0.5 MG/2 ML INHALATION SUSPENSION NEB SCH (20:46)
[2024-03-03 20:50] VITALS: O2SAT 97
[2024-03-03] MEDS: PANTOPRAZOLE 40MG TAB (PROTONIX) PO SCH (21:02)
[2024-03-03] MEDS: DOXYCYCLINE HYCLATE 100MG TABLET PO SCH (21:02)
[2024-03-03] MEDS: DOCUSATE SODIUM 100MG CAPSULE PO SCH (21:03)
[2024-03-03] MEDS: ACETAMINOPHEN 500 MG TAB PO PRN (21:06)
[2024-03-03] MEDS: MECLIZINE 25 MG TABLET PO SCH (22:39)
[2024-03-03 23:23] VITALS: BP 106/55; TEMP 99.3; O2SAT 89
[2024-03-04] VITALS (7 sets, daily range): BP systolic 114–147; BP diastolic 64–80; TEMP 97.8–100.4; O2SAT 93–99
[2024-03-04 06:13] LABS: HEMATOCRIT 35.1 % (36.0-47.0); HEMOGLOBIN 11.2 g/dl (12.0-15.5); LYMPH # 0.6 10^3/uL (1.5-5.0); LYMPH % 5.6 % (24.0-44.0); MEAN CORPUSCULAR HEMOGLOBIN 29.6 pg (27.0-33.0); MEAN CORPUSCULAR HGB CONC 31.9 g/dl (32.0-36.5); MEAN CORPUSCULAR VOLUME 92.6 fl (80.0-96.0); MONO # 0.7 10^3/uL (0.0-0.8); MONO % 6.3 % (2.0-8.0); PLATELET COUNT, AUTOMATED 261 10^3/uL (150-450); RED BLOOD COUNT 3.79 10^6/uL (4.00-5.40); WHITE BLOOD COUNT 10.3 10^3/uL (4.0-10.0)
[2024-03-04 06:47] LABS: BLOOD UREA NITROGEN 16 MG/DL (9-23); CALCIUM LEVEL 8.6 MG/DL (8.3-10.6); CARBON DIOXIDE LEVEL 25 MMOL/L (20-31); CHLORIDE LEVEL 107 MMOL/L (98-107); CREATININE FOR GFR 0.62 MG/DL (0.55-1.30); GLOMERULAR FILTRATION RATE > 60.0 (>39); GLUCOSE, FASTING 163 MG/DL (74-106); POTASSIUM SERUM 3.8 MMOL/L (3.5-5.1); SODIUM LEVEL 143 MMOL/L (136-145)
[2024-03-04] MEDS: ACETAMINOPHEN *IV* 1,000 MG in IV 1 EA IV ONE (08:41)
[2024-03-04] MEDS: cefTRIAXone SOD 2 GM in DEXTROSE 5% (D5W) ADV/MINI-BAG 50 ML IV SCH (09:04)
[2024-03-04] MEDS: DONEPEZIL 5 MG TAB PO SCH (09:05)
[2024-03-04] MEDS: ESCITALOPRAM OXALATE 10 MG TAB (LEXAPRO) PO SCH (09:05)
[2024-03-04] MEDS: ASPIRIN 81MG ENTERIC TABLET PO SCH (09:05)
[2024-03-04] MEDS ORDERED: DEXTROMETHORPHAN 60MG/10ML SUSP 90ML BTL(DELSYM) PO PRN (09:05)
[2024-03-04] MEDS: ENOXAPARIN 40MG/0.4ML SYRINGE (J1650 PER 10MG) SC SCH (09:05)
[2024-03-04] MEDS: dexAMETHasone 20MG/5ML VIAL IV SCH (11:06)
[2024-03-04] MEDS: ATORVASTATIN 20 MG TAB PO SCH (21:50)
[2024-03-05] VITALS (7 sets, daily range): BP systolic 132–187; BP diastolic 67–89; TEMP 97.3–98.9; O2SAT 93–98
[2024-03-05 07:52] LABS: BASO % 0.1 % (0.0-1.0); EOS % 0.1 % (0.0-3.0); HEMATOCRIT 40.5 % (36.0-47.0); HEMOGLOBIN 12.8 g/dl (12.0-15.5); LYMPH # 1.6 10^3/uL (1.5-5.0); LYMPH % 5.8 % (24.0-44.0); MEAN CORPUSCULAR HEMOGLOBIN 29.2 pg (27.0-33.0); MEAN CORPUSCULAR HGB CONC 31.6 g/dl (32.0-36.5); MEAN CORPUSCULAR VOLUME 92.5 fl (80.0-96.0); MONO # 1.6 10^3/uL (0.0-0.8); MONO % 5.9 % (2.0-8.0); NEUTROPHILS # 23.3 10^3/uL (1.5-8.5); NEUTROPHILS % 87.4 % (36.0-66.0); PLATELET COUNT, AUTOMATED 368 10^3/uL (150-450); RED BLOOD COUNT 4.38 10^6/uL (4.00-5.40); WHITE BLOOD COUNT 26.7 10^3/uL (4.0-10.0)
[2024-03-05 08:19] LABS: BLOOD UREA NITROGEN 19 MG/DL (9-23); CALCIUM LEVEL 9.5 MG/DL (8.3-10.6); CARBON DIOXIDE LEVEL 26 MMOL/L (20-31); CHLORIDE LEVEL 108 MMOL/L (98-107); CREATININE FOR GFR 0.73 MG/DL (0.55-1.30); GLOMERULAR FILTRATION RATE > 60.0 (>39); GLUCOSE, FASTING 102 MG/DL (74-106); POTASSIUM SERUM 4.4 MMOL/L (3.5-5.1); SODIUM LEVEL 146 MMOL/L (136-145)
[2024-03-06 04:34] VITALS: BP 137/74; TEMP 97.7; O2SAT 92
[2024-03-06 07:03] LABS: BASO % 0.1 % (0.0-1.0); HEMATOCRIT 37.4 % (36.0-47.0); HEMOGLOBIN 11.9 g/dl (12.0-15.5); LYMPH # 0.9 10^3/uL (1.5-5.0); LYMPH % 5.3 % (24.0-44.0); MEAN CORPUSCULAR HEMOGLOBIN 29.2 pg (27.0-33.0); MEAN CORPUSCULAR HGB CONC 31.8 g/dl (32.0-36.5); MEAN CORPUSCULAR VOLUME 91.7 fl (80.0-96.0); MONO # 0.8 10^3/uL (0.0-0.8); MONO % 4.8 % (2.0-8.0); NEUTROPHILS # 15.3 10^3/uL (1.5-8.5); NEUTROPHILS % 89.1 % (36.0-66.0); PLATELET COUNT, AUTOMATED 323 10^3/uL (150-450); RED BLOOD COUNT 4.08 10^6/uL (4.00-5.40); WHITE BLOOD COUNT 17.2 10^3/uL (4.0-10.0)
[2024-03-06 07:28] LABS: BLOOD UREA NITROGEN 23 MG/DL (9-23); CALCIUM LEVEL 9.5 MG/DL (8.3-10.6); CARBON DIOXIDE LEVEL 28 MMOL/L (20-31); CHLORIDE LEVEL 106 MMOL/L (98-107); CREATININE FOR GFR 0.65 MG/DL (0.55-1.30); GLOMERULAR FILTRATION RATE > 60.0 (>39); GLUCOSE, FASTING 103 MG/DL (74-106); POTASSIUM SERUM 4.4 MMOL/L (3.5-5.1); SODIUM LEVEL 143 MMOL/L (136-145)
[2024-03-06 07:43] VITALS: BP 156/77; TEMP 97.9; O2SAT 90
[2024-03-06 15:47] VITALS: BP 146/73; TEMP 97.8; O2SAT 91
[2024-03-06 19:37] VITALS: BP 154/76; TEMP 97.4; O2SAT 96
[2024-03-07 03:19] VITALS: BP 168/80; TEMP 97.7; O2SAT 98
[2024-03-07 05:55] LABS: BASO % 0.1 % (0.0-1.0); HEMATOCRIT 34.9 % (36.0-47.0); HEMOGLOBIN 11.3 g/dl (12.0-15.5); LYMPH # 0.8 10^3/uL (1.5-5.0); LYMPH % 6.8 % (24.0-44.0); MEAN CORPUSCULAR HEMOGLOBIN 29.6 pg (27.0-33.0); MEAN CORPUSCULAR HGB CONC 32.4 g/dl (32.0-36.5); MEAN CORPUSCULAR VOLUME 91.4 fl (80.0-96.0); MONO # 0.6 10^3/uL (0.0-0.8); MONO % 5.4 % (2.0-8.0); NEUTROPHILS # 9.6 10^3/uL (1.5-8.5); PLATELET COUNT, AUTOMATED 280 10^3/uL (150-450); RED BLOOD COUNT 3.82 10^6/uL (4.00-5.40)
[2024-03-07 06:19] LABS: BLOOD UREA NITROGEN 23 MG/DL (9-23); CALCIUM LEVEL 9.1 MG/DL (8.3-10.6); CARBON DIOXIDE LEVEL 30 MMOL/L (20-31); CHLORIDE LEVEL 103 MMOL/L (98-107); CREATININE FOR GFR 0.61 MG/DL (0.55-1.30); GLOMERULAR FILTRATION RATE > 60.0 (>39); GLUCOSE, FASTING 160 MG/DL (74-106); POTASSIUM SERUM 3.8 MMOL/L (3.5-5.1); SODIUM LEVEL 143 MMOL/L (136-145)
[2024-03-07 07:30] VITALS: BP 127/66; TEMP 97.5; O2SAT 93
[2024-03-07 07:42] VITALS: O2SAT 95
[2024-03-07 17:47] VITALS: BP 153/72; TEMP 97.3; O2SAT 83
[2024-03-07 20:30] VITALS: BP 150/78; TEMP 97.5; O2SAT 91
[2024-03-07] MEDS: CEFDINIR 300 MG CAP (OMNICEF) PO SCH (21:07)
[2024-03-08 01:00] VITALS: O2SAT 91
[2024-03-08 03:15] VITALS: BP 146/58; TEMP 98.3; O2SAT 98
[2024-03-08 05:15] LABS: BASO % 0.1 % (0.0-1.0); EOS # 0.1 10^3/uL (0.0-0.5); EOS % 0.5 % (0.0-3.0); HEMATOCRIT 33.7 % (36.0-47.0); HEMOGLOBIN 10.9 g/dl (12.0-15.5); LYMPH # 0.8 10^3/uL (1.5-5.0); LYMPH % 7.1 % (24.0-44.0); MEAN CORPUSCULAR HEMOGLOBIN 28.9 pg (27.0-33.0); MEAN CORPUSCULAR HGB CONC 32.3 g/dl (32.0-36.5); MEAN CORPUSCULAR VOLUME 89.4 fl (80.0-96.0); MONO # 0.7 10^3/uL (0.0-0.8); MONO % 5.8 % (2.0-8.0); NEUTROPHILS # 9.7 10^3/uL (1.5-8.5); NEUTROPHILS % 85.7 % (36.0-66.0); PLATELET COUNT, AUTOMATED 257 10^3/uL (150-450); RED BLOOD COUNT 3.77 10^6/uL (4.00-5.40); WHITE BLOOD COUNT 11.3 10^3/uL (4.0-10.0)
[2024-03-08 05:45] LABS: BLOOD UREA NITROGEN 22 MG/DL (9-23); CALCIUM LEVEL 8.8 MG/DL (8.3-10.6); CARBON DIOXIDE LEVEL 32 MMOL/L (20-31); CHLORIDE LEVEL 106 MMOL/L (98-107); CREATININE FOR GFR 0.65 MG/DL (0.55-1.30); GLOMERULAR FILTRATION RATE > 60.0 (>39); GLUCOSE, FASTING 135 MG/DL (74-106); POTASSIUM SERUM 3.8 MMOL/L (3.5-5.1); SODIUM LEVEL 144 MMOL/L (136-145)
[2024-03-08] MEDS ORDERED: DOXY100T PO (09:39)
[2024-03-08] MEDS ORDERED: COLA100C5 PO (09:39)
[2024-03-08] MEDS ORDERED: CEFD300CAP PO (09:39)
[2024-03-08] MEDS ORDERED: PRED20TA PO (09:39)
== END 2024-03-08 12:15 | disposition home or self-care (01) | DRG 871 ==
LOC: M ED 08:00 → M ED INP 14:47 → M PCU 20:18 → M MSPAV 03-07 17:32
PROVIDERS: ADMIT Internal Medicine Nephrology; ATTEND Internal Medicine
DX: A41.9 Sepsis, unspecified organism (principal); J96.21 Acute and chronic respiratory failure with hypoxia; J12.89 Other viral pneumonia; J44.0 Chronic obstructive pulmonary disease with (acute) lower respiratory infection; J44.1 Chronic obstructive pulmonary disease with (acute) exacerbation; I24.89 Other forms of acute ischemic heart disease; I10 Essential (primary) hypertension; E78.5 Hyperlipidemia, unspecified; F41.9 Anxiety disorder, unspecified; B34.8 Other viral infections of unspecified site; F32.A Depression, unspecified; F03.90 Unspecified dementia, unspecified severity, without behavioral disturbance, psychotic disturbance, mood disturbance, and anxiety; Z86.16 Personal history of COVID-19; Z87.891 Personal history of nicotine dependence; Z85.21 Personal history of malignant neoplasm of larynx; Z93.0 Tracheostomy status; Z99.81 Dependence on supplemental oxygen; Z79.82 Long term (current) use of aspirin; Z79.899 Other long term (current) drug therapy

== ENCOUNTER → 2024-03-23 | Outpatient (CLI) | payer MEDICARE ==
[~2024-03-23] MED LIST changes: +CEFD300CAP PO; +COLA100C5 PO; +DONE5TAB82 PO; +DOXY100T PO; +FLUT1BLS8 IH; +MECL-86 PO
== END ==
LOC: M CLY 10:44
PROVIDERS: ATTEND Nurse Practitioner Family
DX: J18.9 Pneumonia, unspecified organism (principal)

== ENCOUNTER 2024-04-08 14:00 | Outpatient (RCR) | payer MEDICARE | END 2024-04-29 | LOC: M ST 14:00 | PROVIDERS: ATTEND Otolaryngology | DX: Z90.02 Acquired absence of larynx (principal); Z96.3 Presence of artificial larynx ==

== ENCOUNTER → 2024-04-27 | Outpatient (CLI) | payer MEDICARE | LOC: M CLY 13:05 | PROVIDERS: ATTEND Nurse Practitioner Adult Health | DX: J18.9 Pneumonia, unspecified organism (principal) ==

== ENCOUNTER → 2024-05-04 | Outpatient (CLI) | payer MEDICARE | LOC: M RAD 11:09 | PROVIDERS: ATTEND Nurse Practitioner Family | DX: I65.23 Occlusion and stenosis of bilateral carotid arteries (principal); I25.10 Atherosclerotic heart disease of native coronary artery without angina pectoris ==

== ENCOUNTER → 2024-06-14 | Outpatient (CLI) | payer MEDICARE | LOC: M PLAIMG 11:50 | PROVIDERS: ATTEND Nurse Practitioner Adult Health | DX: R91.8 Other nonspecific abnormal finding of lung field (principal); Z93.0 Tracheostomy status; I70.0 Atherosclerosis of aorta; I25.10 Atherosclerotic heart disease of native coronary artery without angina pectoris; K44.9 Diaphragmatic hernia without obstruction or gangrene; J98.11 Atelectasis; J47.9 Bronchiectasis, uncomplicated ==

== ENCOUNTER → 2024-06-20 | Outpatient (REF) | payer MEDICARE | LOC: M LAB REF 16:53 | PROVIDERS: ATTEND Nurse Practitioner Adult Health | DX: J47.9 Bronchiectasis, uncomplicated (principal) ==

== ENCOUNTER → 2024-07-04 | Outpatient (CLI) | payer MEDICARE | LOC: M LAB 12:45 | PROVIDERS: ATTEND Nurse Practitioner Adult Health | DX: J47.9 Bronchiectasis, uncomplicated (principal); Z53.9 Procedure and treatment not carried out, unspecified reason ==

== ENCOUNTER → 2024-07-06 | Outpatient (REF) | payer MEDICARE | LOC: M LAB REF 11:19 | PROVIDERS: ATTEND Nurse Practitioner Adult Health | DX: J47.9 Bronchiectasis, uncomplicated (principal) ==

== ENCOUNTER → 2024-08-31 | Outpatient (CLI) | payer MEDICARE | LOC: M CARPUL 09:59 | PROVIDERS: ATTEND Nurse Practitioner Family | DX: I25.10 Atherosclerotic heart disease of native coronary artery without angina pectoris (principal) ==

== ENCOUNTER 2024-10-07 18:25 | Emergency (ER) | payer MEDICARE ==
[~2024-10-07] VITALS: Ht 157.5 cm; Wt 68.5 kg
[~2024-10-07 18:25] MED LIST changes: -NIRM1TAB14 PO; +NIRM1TAB16 PO
[2024-10-07 19:34] LABS: BASO # 0.1 10^3/uL (0.0-0.2); BASO % 0.3 % (0.0-1.0); EOS # 0.0 10^3/uL (0.0-0.5); EOS % 0.1 % (0.0-3.0); LYMPH # 1.2 10^3/uL (1.5-5.0); LYMPH % 7.3 % (24.0-44.0); MONO # 1.4 10^3/uL (0.0-0.8); MONO % 8.3 % (2.0-8.0); NEUTROPHILS # 14.1 10^3/uL (1.5-8.5); NEUTROPHILS % 83.5 % (36.0-66.0); PLATELET COUNT, AUTOMATED 332 10^3/uL (150-450)
[2024-10-07 19:58] LABS: ALT/SGPT 16 U/L (7.0-40); AST/SGOT 21 U/L (<34); CALCIUM LEVEL 9.2 MG/DL (8.3-10.6); CARBON DIOXIDE LEVEL 26 MMOL/L (20-31); CHLORIDE LEVEL 102 MMOL/L (98-107); CREATININE FOR GFR 0.69 MG/DL (0.55-1.30); GLOMERULAR FILTRATION RATE > 90.0 (>39); POTASSIUM SERUM 4.1 MMOL/L (3.5-5.1); SODIUM LEVEL 141 MMOL/L (136-145)
[2024-10-07] MEDS: IBUPROFEN 600 MG TAB PO ONE (20:14)
[2024-10-07] MEDS: NS (Normal Saline) 0.9% 1,000 ML IV ONE (20:15)
[2024-10-07] MEDS ORDERED: PRED20TA PO (21:42)
[2024-10-07 22:15] VITALS: BP 122/67; TEMP 98; O2SAT 98
== END 2024-10-07 22:15 | disposition home or self-care (01) ==
LOC: M ED 18:25
DX: J44.0 Chronic obstructive pulmonary disease with (acute) lower respiratory infection (principal); J20.9 Acute bronchitis, unspecified; B34.8 Other viral infections of unspecified site; E78.5 Hyperlipidemia, unspecified; Z85.21 Personal history of malignant neoplasm of larynx; Z79.82 Long term (current) use of aspirin; Z79.899 Other long term (current) drug therapy
CPT/HCPCS: 71045; 80048; 80076; 83605; 84145; 85025; 87040; 87486; 87581; 87633; 87798; 90832; 93005; 93041; 94760; 96361; 96374; 99285; J2919

== ENCOUNTER 2024-10-09 13:26 | Emergency (ER) | payer MEDICARE ==
[~2024-10-09] VITALS: Ht 165.1 cm; Wt 72.6 kg
[~2024-10-09 13:26] MED LIST changes: +NIRM1TAB14 PO; -NIRM1TAB16 PO
[2024-10-09 13:51] LABS: PLATELET COUNT, AUTOMATED 490 10^3/uL (150-450)
[2024-10-09] MEDS: IPRATROPIUM 0.5 MG/ALBUTEROL 2.5 MG INH SOL UD 3 ML NEB PRN (13:53)
[2024-10-09 13:54] VITALS: O2SAT 90
[2024-10-09] MEDS ORDERED: PRED20TA PO (14:14)
[2024-10-09] MEDS ORDERED: LISI10TA22 PO (14:14)
[2024-10-09] MEDS ORDERED: HOME MED LIST COMPLETE! XX SCH (14:15)
[2024-10-09 14:29] LABS: LYMPHOCYTES 6 % (16-44); METAMYELOCYTES 1 % (0-0); MONOCYTES 17 % (0-5); MYELOCYTES 1 % (0-0); NEUTROPHILS 70 % (28-66); PLATELET ESTIMATE INCREASED (NORMAL)
[2024-10-09 14:33] LABS: ALT/SGPT 35 U/L (7.0-40); AST/SGOT 79 U/L (<34); CALCIUM LEVEL 9.0 MG/DL (8.3-10.6); CARBON DIOXIDE LEVEL 25 MMOL/L (20-31); CHLORIDE LEVEL 109 MMOL/L (98-107); CREATININE FOR GFR 1.73 MG/DL (0.55-1.30); GLOMERULAR FILTRATION RATE 30.4 (>39); POTASSIUM SERUM 5.4 MMOL/L (3.5-5.1); SODIUM LEVEL 147 MMOL/L (136-145)
[2024-10-09 14:34] LABS: ABG BASE EXCESS -8.3 (-2.0-2.0); ABG STANDARD HCO3 17.7 MMOL/L. (22.0-26.0)
[2024-10-09 14:37] LABS: ABG HCO3 22.1 MMOL/L (22.0-26.0); ABG O2 SATURATION 91.9 % (95.0-99.0); ABG PARTIAL PRESSURE O2 70.7 mmHg (75.0-100.0); ABG TOTAL CO2 24.2 MMOL/L (23.0-31.0)
[2024-10-09 14:38] LABS: ABG PARTIAL PRESSURE CO2 68.6 mmHg (35.0-45.0); ABG pH (ARTERIAL) 7.126 UNITS (7.350-7.450)
[2024-10-09] MEDS ORDERED: ISOVUE-370 76% 100 ML VIAL As Ordered ONE (14:48)
[2024-10-09] MEDS: PIPERACILLIN/TAZOBACTAM SOD 4.5 GM in DEXTROSE 5% (D5W) ADV/MINI-BAG 50 ML IV ONE (15:19)
[2024-10-09 15:20] VITALS: BP 114/68
[2024-10-09] MEDS: FUROSEMIDE 100 MG/10 ML VIAL IV ONE (15:20)
[2024-10-09 15:39] LABS: ABG BASE EXCESS -9.9 (-2.0-2.0); ABG HCO3 20.8 MMOL/L (22.0-26.0); ABG O2 SATURATION 97.7 % (95.0-99.0); ABG PARTIAL PRESSURE O2 114.0 mmHg (75.0-100.0); ABG STANDARD HCO3 16.6 MMOL/L. (22.0-26.0); ABG TOTAL CO2 23.0 MMOL/L (23.0-31.0)
[2024-10-09 15:42] LABS: ABG PARTIAL PRESSURE CO2 70.0 mmHg (35.0-45.0); ABG pH (ARTERIAL) 7.091 UNITS (7.350-7.450)
[2024-10-09] MEDS ORDERED: MIDAZOLAM INJ 2 MG/2 ML VIAL As Ordered ONE (16:23)
[2024-10-09] MEDS: MIDAZOLAM INJ 2 MG/2 ML VIAL IV STA (16:25)
[2024-10-09] MEDS: NS (Normal Saline) 0.9% 2,180 ML in IV 1 EA IV ONE (16:53)
[2024-10-09] MEDS: ASPIRIN 300 MG SUPP PR STA (16:53)
[2024-10-09] MEDS ORDERED: NOREPINEPHRINE BITARTRATE 16 MG in D5W 484 ML IV SCH (17:10)
[2024-10-09 17:34] LABS: ABG BASE EXCESS -11.5 (-2.0-2.0); ABG HCO3 19.2 MMOL/L (22.0-26.0); ABG O2 SATURATION 94.4 % (95.0-99.0); ABG PARTIAL PRESSURE O2 83.9 mmHg (75.0-100.0); ABG STANDARD HCO3 15.4 MMOL/L. (22.0-26.0); ABG TOTAL CO2 21.2 MMOL/L (23.0-31.0)
[2024-10-09 17:37] LABS: ABG PARTIAL PRESSURE CO2 66.4 mmHg (35.0-45.0); ABG pH (ARTERIAL) 7.078 UNITS (7.350-7.450)
[2024-10-09] MEDS: PANTOPRAZOLE 40MG VIAL IV SCH (17:38)
[2024-10-09 18:07] LABS: APPEARANCE, URINE CLOUDY (CLEAR); BACTERIA, URINE AUTO 1+ (NEGATIVE); BILIRUBIN, URINE AUTO NEGATIVE (NEGATIVE); BLOOD, URINE BLOOD 2+ (NEGATIVE); GLUCOSE, URINE (UA) AUTO NEGATIVE (NEGATIVE); KETONE, URINE AUTO NEGATIVE (NEGATIVE); LEUKOCYTE ESTERASE, URINE AUTO TRACE (NEGATIVE); MUCUS, URINE SMALL (NEGATIVE); NITRITE, URINE AUTO NEGATIVE (NEGATIVE); PROTEIN, URINE AUTO 2+ mg/dL (NEGATIVE); RBC, URINE AUTO 2 /HPF (0-3); SPECIFIC GRAVITY URINE AUTO 1.026 (1.002-1.035); SQUAMOUS EPITHELIAL CELL UR AU 1 /HPF (0-6); UROBILINOGEN, URINE AUTO 0.2 mg/dL (0.0-2.0); WBC, URINE AUTO 10 /HPF (0-3)
[2024-10-09] MEDS: HEPARIN DRIP 25,000 UNITS in IV 1 EA IV SCH (18:13)
[2024-10-09] MEDS: NOREPINEPHRINE 4MG IN D5 250ML 4 MG in IV 1 EA IV SCH (18:59)
[2024-10-09] MEDS ORDERED: VANCOMYCIN HCL 1,500 MG, VIAL MATE ADAPTER 1 EACH in NS 500 ML IV ONE (19:00)
[2024-10-09] MEDS ORDERED: DOXYCYCLINE HYCLATE 100 MG in DEXTROSE 5% (D5W) MINI-BAG PLU 100 ML IV SCH ×2 (19:00→21:00)
[2024-10-09] MEDS: IPRATROPIUM 0.5 MG/ALBUTEROL 2.5 MG INH SOL UD 3 ML NEB SCH (19:07)
[2024-10-09 19:50] VITALS: BP 95/53
[2024-10-09 20:26] VITALS: O2SAT 100
[2024-10-09] MEDS ORDERED: PIPERACILLIN/TAZOBACTAM SOD 3.375 GM in DEXTROSE 5% (D5W) ADV/MINI-BAG 50 ML IV SCH (21:00)
[2024-10-09] MEDS ORDERED: HEPARIN SOD 5000 UNITS/ML 1 ML VIAL/SYRINGE SQ SCH (22:00)
[2024-10-10] MEDS ORDERED: VANCOMYCIN HCL 750 MG, VIAL MATE ADAPTER 1 EACH in NS 250 ML IV SCH (19:00)
== END 2024-10-09 20:14 | disposition short-term general hospital (02) ==
LOC: M ED 13:26
DX: J96.02 Acute respiratory failure with hypercapnia (principal); Z85.21 Personal history of malignant neoplasm of larynx; I10 Essential (primary) hypertension; E78.5 Hyperlipidemia, unspecified; J44.9 Chronic obstructive pulmonary disease, unspecified; Z96.3 Presence of artificial larynx; F41.1 Generalized anxiety disorder; Z87.891 Personal history of nicotine dependence; R65.20 Severe sepsis without septic shock; N17.9 Acute kidney failure, unspecified; Z79.82 Long term (current) use of aspirin; Z79.01 Long term (current) use of anticoagulants; Z79.899 Other long term (current) drug therapy
CPT/HCPCS: 36415; 36600; 51702; 71045; 71275; 80048; 80076; 81001; 82803; 83605; 83880; 84145; 84443; 84484; 85025; 85730; 87040; 87641; 93005; 93041; 93306; 94640; 94760; 96374; 96375; 96376; 99291; J1938; J2250; J2470; J2543; J2919; Q9967

== ENCOUNTER 2024-10-18 14:00 | Outpatient (RCR) | payer MEDICARE ==
[~2024-10-18 14:00] MED LIST changes: +LISI10TA22 PO; -NIRM1TAB14 PO; +NIRM1TAB16 PO
== END 2024-10-30 ==
LOC: M ST 14:00
PROVIDERS: ATTEND Otolaryngology
DX: Z90.02 Acquired absence of larynx (principal); Z96.3 Presence of artificial larynx

== ENCOUNTER → 2024-11-15 | Outpatient (CLI) | payer MEDICARE | LOC: M CLY 11:03 | PROVIDERS: ATTEND Nurse Practitioner Family | DX: J96.20 Acute and chronic respiratory failure, unspecified whether with hypoxia or hypercapnia (principal) ==

== ENCOUNTER → 2024-11-15 | Outpatient (REF) | payer MEDICARE ==
[2024-11-15 18:50] LABS: BASO # 0.1 10^3/uL (0.0-0.2); BASO % 0.3 % (0.0-1.0); EOS # 0.1 10^3/uL (0.0-0.5); EOS % 0.9 % (0.0-3.0); LYMPH # 2.5 10^3/uL (1.5-5.0); LYMPH % 15.4 % (24.0-44.0); MONO # 1.0 10^3/uL (0.0-0.8); MONO % 6.0 % (2.0-8.0); NEUTROPHILS # 12.2 10^3/uL (1.5-8.5); NEUTROPHILS % 76.8 % (36.0-66.0); PLATELET COUNT, AUTOMATED 404 10^3/uL (150-450)
[2024-11-15 19:24] LABS: ALT/SGPT 20.0 U/L (7.0-40); AST/SGOT 20.0 U/L (<34); CALCIUM LEVEL 8.9 MG/DL (8.3-10.6); CARBON DIOXIDE LEVEL 28.0 MMOL/L (20-31); CHLORIDE LEVEL 104.0 MMOL/L (98-107); CREATININE FOR GFR 0.86 MG/DL (0.55-1.30); GLOMERULAR FILTRATION RATE 70.4 (>39); POTASSIUM SERUM 3.7 MMOL/L (3.5-5.1); SODIUM LEVEL 141.0 MMOL/L (136-145)
== END ==
LOC: M SFHCCLAY 10:35
PROVIDERS: ATTEND Nurse Practitioner Family
DX: E53.1 Pyridoxine deficiency (principal); E53.8 Deficiency of other specified B group vitamins; R73.03 Prediabetes; Z93.0 Tracheostomy status; J44.9 Chronic obstructive pulmonary disease, unspecified; E78.2 Mixed hyperlipidemia; F41.8 Other specified anxiety disorders; R41.3 Other amnesia; I10 Essential (primary) hypertension

== ENCOUNTER 2024-12-27 12:12 | Outpatient (RCR) | payer MEDICARE | END 2024-12-30 | LOC: M ST 12:12 | PROVIDERS: ATTEND Otolaryngology | DX: Z96.3 Presence of artificial larynx (principal) ==

== ENCOUNTER 2025-01-03 15:26 | Outpatient (RCR) | payer MEDICARE | END 2025-01-29 | LOC: M ST 15:26 | PROVIDERS: ATTEND Otolaryngology | DX: Z90.02 Acquired absence of larynx (principal); Z96.3 Presence of artificial larynx ==

== ENCOUNTER 2025-02-20 11:31 | Outpatient (RCR) | payer MEDICARE | END 2025-03-01 | LOC: M ST 11:31 | PROVIDERS: ATTEND Otolaryngology | DX: Z96.3 Presence of artificial larynx (principal) ==